=== PATIENT | male | born 1950 | race Caucasian/White ===

== ENCOUNTER 2019-11-02 08:45 | Emergency (ER) | payer MEDICARE, SELFPAY ==
[2019-11-02 08:53] VITALS: BP 158/86; PULSE 54; RESP 18; TEMP 36.5; O2SAT 98
--- NOTE | 2019-11-02 09:00 | DI.US_ITS ---
EXAM: US LOWER EXTREMITY VENOUS RT CLINICAL HISTORY: Right calf pain, extended driving. TECHNIQUE: Ultrasound performed using standard protocol. COMPARISON: No exams were available for comparison FINDINGS: Duplex venous ultrasound was performed according to the usual protocol. The deep veins are freely com pressible throughout and there is normal flow augmentation with manual calf compression. 2D and Doppl er evaluation are unremarkable. IMPRESSION: No evidence of deep venous thrombosis of the right lower extremity DATA REPOSITORY:
[2019-11-02 09:02] VITALS: RESP 18
--- NOTE | 2019-11-02 09:08 | ED.GENADUL_ITS ---
Discharge Plan Disposition Patient Disposition: HOME Condition: Improving Discharge Details Clinical Impression: Strain of right soleus muscle Primary Care Provider: Ana Maria,[facility] ED Provider: Bernardo Cooper Home Meds and New Rx's Prescriptions: Continued naproxen sodium [Aleve] 220 mg Tablet 440 mg PO BID PRNRF: 0 rosuvastatin 5 mg Tablet 5 mg PO DAILY RF: 0 Discharge Instructions Instructions: Muscle Strain (ED) Additional Instructions: Continue to hydrate today. A well-rounded diet with fruits and vegetables for electrolytes and trace minerals. May foam roll area to reduce discomfort. Aleve as needed for pain. Return to the ER if you develop chest pain, shortness of breath, a fever or rash, or any other acute concerns. Medical Decision Making 69-year-old male who [place], awoken to 2 AM with pain in his right calf. He is tender along the lateral aspect of his right soleus. Gastrocnemius appears unaffected and I did not appreciate any cords or lesions. Patient referred for ultrasound which was negative for acute finding. Discussed with him this is most consistent with soleus cramping. Discussed home management techniques. He is stable for discharge to home HPI General Mode of arrival: ambulatory . Date/Time Provider Initiated Documentation: 11/02/19 08:45 . Limitations to Documentation: no limitations . Information obtained by: patient . History of Present Illness 69 year old M presents to the emergency department with the chief complaint of Right leg pain that woke him up in the middle of the night, described as moderate, Quality is described as dull, and is localized to the right and lower extremity. Patient reports no radiation. Patient started experiencing this hour(s) and it has been constant. Patient notes no other symptoms.; denies chest pain and shortness of breath. Patient did receive the following treatments prior to arrival, none Related Data Home Medications Medication Instructions Recorded Confirmed naproxen sodium [Aleve] 440 mg PO BID PRN 11/02/19 11/02/19 rosuvastatin 5 mg PO DAILY 11/02/19 11/02/19 Allergies Allergy/AdvReac Type Severity Reaction Status Date / Time No Known Allergies Allergy Unverified 11/02/19 08:58 General Stated Complaint: Vascular EULALIA: 3 Review of Systems Narrative: 6 systems reviewed and otherwise negative Exam Narrative Exam Narrative: GEN: awake, alert, oriented 3. Pleasant, well groomed, interactive. HEAD: Normocephalic, atraumatic EYES: PERRL, EOMI NECK: Full ROM, no REKHA, no menigismus CHEST/RESP: Nontender, clear to auscultation bilateral, no wheeze/rhonchi/rales CARDIOVASCULAR: RRR, no murmur, rub mallorie. EXT: Full ROM, no edema, no rash, no cords appreciated. 2+ DP bilaterally, tender right soleus. Neuro: Grossly normal neurologic exam, conversant, interactive. Psych: Speech fluent, thoughts congruent, affect normal Course Vital Signs Vital signs: Vital Signs Temperature 36.5 C 11/02/19 08:53 Pulse 54 L 11/02/19 08:53 Respiratory Rate 18 11/02/19 08:53 Blood Pressure 158/86 H 11/02/19 08:53 Pulse Oximetry 98 11/02/19 08:53 Temperature 36.5 C 11/02/19 08:53 Pulse 54 L 11/02/19 08:53 Respiratory Rate 18 11/02/19 09:02 Respiratory Effort Non-Labored 11/02/19 09:02 Respiratory Depth Normal 11/02/19 09:02 Blood Pressure 158/86 H 11/02/19 08:53 Blood Pressure Position Sitting 11/02/19 08:53 Pulse Oximetry 98 11/02/19 08:53 Oxygen Delivery Method Room Air 11/02/19 08:53 Oxygen Flow Rate 0 11/02/19 08:53 Pain Level 2 11/02/19 09:02
== END 2019-11-02 10:28 | disposition home or self-care (01) ==
PROVIDERS: Emergency Provider Emergency Medicine
DX: S86.111A Strain of other muscle(s) and tendon(s) of posterior muscle group at lower leg level, right leg, initial encounter (principal); X50.1XXA Overexertion from prolonged static or awkward postures, initial encounter
CPT/HCPCS: 99284; 93971; 99283